=== PATIENT | female | born 1980 | race Caucasian/White ===

== ENCOUNTER 2020-11-06 08:03 | Outpatient (CLI) | payer BC, SELFPAY ==
--- NOTE | ~2020-11-06 | MM_ITS ---
EXAMINATION: MM screening yo BI w talha HISTORY: Screening TECHNIQUE: Craniocaudal and mediolateral oblique 3-D tomosynthesis images were obtained and synthetic 2-D images were generated. CAD analysis was submitted and interpreted. COMPARISON: No prior mammogram is available for comparison at this institution. BREAST PARENCHYMAL COMPOSITION: There are scattered areas of fibroglandular density. FINDINGS: There is no evidence of suspicious mass, calcification, or architectural distortion to sugg est malignancy in either breast. There has been no suspicious interval change. IMPRESSION: 1. No mammographic evidence of malignancy. 2. Recommend routine screening mammography in one year. BI-RADS Category 1: Negative Reviewed, dictated and finalized at location A.
== END 2020-11-06 08:04 | disposition home or self-care (01) ==
LOC: ANHIMG 08:08
PROVIDERS: PCP Nurse Practitioner Family
DX: Z12.31 Encounter for screening mammogram for malignant neoplasm of breast (principal)
CPT/HCPCS: 77063; 77067

== ENCOUNTER 2024-12-21 09:44 | Outpatient (CLI) | payer SELFPAY ==
--- NOTE | ~2024-12-21 | MM_ITS ---
EXAMINATION: MM screening yo BI w talha HISTORY: Screening. Breast reduction surgery in 2020 TECHNIQUE: Craniocaudal and mediolateral oblique 3-D tomosynthesis images were obtained and synthetic 2-D images were generated. CAD analysis was submitted and interpreted. COMPARISON: Mammogram 11/06/2020 BREAST PARENCHYMAL COMPOSITION: There are scattered areas of fibroglandular density. FINDINGS: No suspicious calcifications. Focal asymmetry in the upper outer quadrant of the right breast, posterior depth. Focal asymmetry in the upper-outer quadrant of the left breast, posterior depth. Asymmetry in the lower left breast, posterior depth, seen in the left MLO projection. IMPRESSION: 1. Focal asymmetry in the upper outer quadrant of the right breast. The study is incomplete. A diagnostic right breast mammogram and a diagnostic right breast ultrasound is recommended. 2. Focal asymmetry in the upper outer quadrant of the left breast. In addition, there is an asymmetry in the lower left breast. The study is incomplete. A diagnostic left breast mammogram and a diagnostic left breast ultrasound is recommended. BI-RADS Category 0:-Incomplete-needs additional imaging evaluation. Reviewed, dictated and finalized at location Q. IMPRESSION: 1. Focal asymmetry in the upper outer quadrant of the right breast. The study i s incomplete. A diagnostic right breast mammogram and a diagnostic right breast ultrasound is recommended. 2. Focal asymmetry in the upper outer quadrant of the left breast. In addition, there is an asymmetry in the lower left breast. The study is incomplete. A marta gnostic left breast mammogram and a diagnostic left breast ultrasound is recomm ended. BI-RADS Category 0:-Incomplete-needs additional imaging evaluation.
== END 2024-12-21 09:45 | disposition home or self-care (01) ==
PROVIDERS: PCP Nurse Practitioner Family; Visit Provider Nurse Practitioner Family
DX: Z12.31 Encounter for screening mammogram for malignant neoplasm of breast (principal); R92.8 Other abnormal and inconclusive findings on diagnostic imaging of breast
CPT/HCPCS: 77063; 77067

== ENCOUNTER 2025-01-24 08:45 | Outpatient (CLI) | payer SELFPAY ==
--- NOTE | ~2025-01-24 | MM_ITS ---
EXAMINATION: MM diagnostic yo BI w talha INDICATION: 44-year old female with prior history of bilateral reduction surgery 2020; BI-RADS 0, callback to evaluate Both breasts focal asymmetries. COMPARISON: 12/21/2024 and 11/06/2020 TECHNIQUE: Digital breast tomosynthesis True lateral view and spot compression pain CC and MLO views of Both breasts were obtained with computer-aided detection to assist in interpretation of the study. FINDINGS: There are scattered areas of fibroglandular density. The focal asymmetries seen in the upper outer Both breasts on the screening mammogram effaces on additional views, compatible with normal overlapping tissue and partly post surgical changes. IMPRESSION: Both breasts finding represents superimposition of fibroglandular tissue. No further investigation necessary. RECOMMENDATION: Annual screening mammography in 12 months BI-RADS 2, BENIGN Reviewed, dictated and finalized at location B. IMPRESSION: Both breasts finding represents superimposition of fibroglandular tissue. No fu rther investigation necessary. RECOMMENDATION: Annual screening mammography in 12 months BI-RADS 2, BENIGN
== END 2025-01-24 08:46 | disposition home or self-care (01) ==
PROVIDERS: PCP Nurse Practitioner Family; Visit Provider Nurse Practitioner Family
DX: R92.8 Other abnormal and inconclusive findings on diagnostic imaging of breast (principal)
CPT/HCPCS: 77062; 77066; G0279